=== PATIENT | male | born 1985 | race Caucasian/White ===

== ENCOUNTER 2020-09-23 15:37 | Outpatient (REF) | payer MEDICAID, SELFPAY | END 2020-09-23 15:38 | disposition home or self-care (01) | LOC: HO.LAB 15:37 | PROVIDERS: Visit Provider Internal Medicine | DX: Z20.828 Contact with and (suspected) exposure to other viral communicable diseases (principal) | CPT/HCPCS: C9803; U0003 ==

== ENCOUNTER 2021-02-06 11:00 | Outpatient (REF) | payer MEDICAID, SELFPAY | END 2021-02-06 11:01 | disposition home or self-care (01) | LOC: HO.LAB 11:00 | PROVIDERS: Visit Provider Internal Medicine | DX: Z20.822 Contact with and (suspected) exposure to COVID-19 (principal) | CPT/HCPCS: C9803; U0003; U0005 ==

== ENCOUNTER 2021-07-07 01:50 | Emergency (ER) | payer MEDICAID, SELFPAY ==
[2021-07-07 02:28] VITALS: BP 104/74; PULSE 24; RESP 16; TEMP 36.1; O2SAT 97; BMI 29.8
[2021-07-07 02:56] VITALS: BP 113/62; PULSE 125; RESP 17; TEMP 36.8; O2SAT 95
[2021-07-07 03:40] LABS: Amphetamine Screen Urine Not Detected (Not Detect); Barbiturates, Urine Not Detected (Not Detect); Benzodiazepines Screen Urine POSITIVE (Not Detect); Cannabinoid Screen Urine POSITIVE (Not Detect); Cocaine Screen Urine POSITIVE (Not Detect); Fentanyl, urine POSITIVE (Not Detect); Opiate Screen Urine Not Detected (Not Detect); Phencyclidine Screen Urine Not Detected (Not Detect)
[2021-07-07 03:41] LABS: COVID-19 Test Negative (Negative); IDNOW Serial# 9DD0AD1C
[2021-07-07] MEDS: LORazepam 1 MG TABLET 2 MG PO (04:53)
--- NOTE | 2021-07-07 05:11 | ED.PSYCH ---
HPI - Psych General Chief Complaint: Psychiatric Symptoms Stated Complaint: insomnia, hallucinations Time Seen by Provider: 07/07/21 04:35 Source: patient Mode of arrival: ambulatory Limitations: no limitations History of Present Illness HPI Narrative: Patient with history of cocaine abuse depression reports unable to sleep for last 1 week suicidal feeling sometimes ,visual hallucinations asking for Wellbutrin which she has not taken for few months. Patient asking for some medication to relax as not able to sleep for few days Related Data Home Medications Medication Instructions Recorded Confirmed buprenorphine 8 mg-naloxone 2 mg 3 strip SUBLINGUAL DAILY 07/07/21 07/07/21 sublingual film (Suboxone) clonazepam 0.5 mg tablet 1 tab PO TID 07/07/21 07/07/21 gabapentin 300 mg capsule 1 cap PO TID 07/07/21 07/07/21 quetiapine 200 mg tablet 1 tab PO BEDTIME 07/07/21 07/07/21 Allergies Allergy/AdvReac Type Severity Reaction Status Date / Time aspirin [ASA] Allergy Unknown UNKNOWN Unverified 07/03/20 18:38 Review of Systems Review of Systems: Constitutional : No Fever, No Chills ENT/Mouth : No Ear Pain, No Nasal Congestion, No sore throat Eyes: No Eye Pain, No Swelling, No Redness Cardiovascular : No Chest Pain, No SOB Respiratory : No Cough, No Sputum, No Dyspnea Gastrointestinal : No Nausea, No Vomiting, No Diarrhea, No Hematochezia, No Melena Genitourinary : No Dysuria, No Urinary Frequency, No Hematuria Musculoskeletal : No Myalgias Skin : No Skin Lesions, No rash Neuro : No Weakness, No Numbness, No Paresthesias, No Dizziness, No Headache Psych : positive Anxiety, positive Depression, positive SI Heme/Lymph: No Lymphadenopathy Endocrine : No Polyuria, No Polydipsia PMFSH Past Medical History Medical History Depression Surgical History Hx of neck surgery Social History Social History Advance Directives: No Advance Directives Information Provided: Yes Physical Exam Vital Signs: Vital Signs: Last Vital Signs Temp 98.3 F 07/07/21 02:56 Pulse 125 H 07/07/21 02:56 Resp 17 07/07/21 02:56 BP 113/62 07/07/21 02:56 Pulse Ox 95 07/07/21 02:56 Body Mass Index 29.8 Appearance: Alert. Oriented X3. No acute distress. Anxious Eyes: PERRLA, No Nystagmus no pallor or icterus ENT: Pharynx normal. Oral Mucosa moist Neck: Normal inspection. Neck supple. CVS: Normal heart rate and rhythm. Pulses normal. Respiratory: No respiratory distress. Equal air entry bilateral, no wheezing/rales/rhonchi Abdomen: Soft and nontender. Bowel sounds are present, no mass palpable, no CVA tenderness Skin: Skin warm and dry. Normal skin color. Normal skin turgor. Extremities: No lower extremity edema. No calf tenderness psych: Anxious, depressed, denies any hallucination at this time, no suicidal ideation at this time Neuro: Oriented X 3. No motor deficit. No sensory deficit.No cerebellar signs , cranial nerves II-XII intact MDM - Psych MDM Narrative Medical decision making narrative: Patient with depression with visual hallucinations for sleep with suicidal ideation off and on will get psych consult Lab Data Attestation: I reviewed the patient's lab results. Labs: Lab Results 07/07/21 07/07/21 Range/Units 03:00 03:01 Urine Opiates Screen Not Detected (Not Detect) Urine Fentanyl Screen POSITIVE H (Not Detect) Ur Barbiturates Screen Not Detected (Not Detect) Ur Phencyclidine Scrn Not Detected (Not Detect) Ur Amphetamines Screen Not Detected (Not Detect) U Benzodiazepines Scrn POSITIVE H (Not Detect) Urine Cocaine Screen POSITIVE H (Not Detect) U Marijuana (THC) Screen POSITIVE H (Not Detect) COVID-19 (FREDY) Negative (Negative) COVID-19 Clin Com See Note Discharge Plan Discharge Clinical Impression: Cocaine abuse Depression Qualifiers: Depression Type: major depressive disorder Major depression recurrence: recurrent Active/Remission status: currently active Major depression episode severity: severe Psychotic features: with psychotic features Qualified Code(s): F33.3 - Major depressive disorder, recurrent, severe with psychotic symptoms Prescriptions: No Action quetiapine 200 mg tablet 1 tab PO BEDTIME RF: 0 gabapentin 300 mg capsule 1 cap PO TID RF: 0 buprenorphine-naloxone [Suboxone] 8-2 mg film 3 strip sublingual DAILY RF: 0 clonazepam 0.5 mg tablet 1 tab PO TID RF: 0
--- NOTE | 2021-07-07 06:31 | PC.NURSE ---
Patient just went to bed resting quietly, was up whole night, snacking endlessly, patient was under poly-sub influence,patient has multiple compliant against his psychiatrist, psych consult was ordered for med review, med compliant, behavior not concerning at this time may escalate later, will continue to monitor.
--- NOTE | 2021-07-07 07:06 | PC.NURSE ---
patient appears to remain at rest at present respirations even and unlabored patient appears in no distress
[2021-07-07 08:53] VITALS: BP 108/65; PULSE 84; RESP 16; O2SAT 97
== END 2021-07-07 13:52 ==
PROVIDERS: Emergency Provider Internal Medicine
DX: F33.1 Major depressive disorder, recurrent, moderate (principal); G47.00 Insomnia, unspecified; F14.10 Cocaine abuse, uncomplicated; Z79.899 Other long term (current) drug therapy; Z20.822 Contact with and (suspected) exposure to COVID-19
CPT/HCPCS: 36415; 80307; 87635; 99284

== ENCOUNTER 2022-01-30 04:37 | Emergency (ER) | payer MEDICAID, SELFPAY ==
[2022-01-30 04:48] VITALS: BP 132/85; PULSE 106; RESP 16; O2SAT 96; BMI 27.1
--- NOTE | 2022-01-30 05:45 | PC.NURSE ---
The pt presents alert via EMS with PD in two s/p suspected overdose. Per EMS the pt was found to be cyanotic and unresponsive by family who then called 911. On EMS arrival pt was administered 12mg IM Narcan and then became responsive. On arrival to ED he is awake, alert, oriented x 3. He was able to ambulate from EMS stretcher to ED stretcher independently and with steady gait. Security at bedside on arrival and pt was changed into hospital attire. He was ronald to vopid into urinal in the room without difficulty. He is cooperative, although reluctant to answer most of the questions I ask him associated with triage assessment. Room air sat's are 96%, respirations are non-labored, no cyanosis. Pt sleeping, room air sat's being monitored. Will continue to monitor Napoleon.
--- NOTE | 2022-01-30 06:00 | PC.NURSE ---
pt given juice
[2022-01-30 06:19] VITALS: BP 117/76; PULSE 100; RESP 14; O2SAT 99
[2022-01-30 06:20] LABS: Amphetamine Screen Urine Not Detected (Not Detect); Barbiturates, Urine Not Detected (Not Detect); Benzodiazepines Screen Urine POSITIVE (Not Detect); Cannabinoid Screen Urine POSITIVE (Not Detect); Cocaine Screen Urine POSITIVE (Not Detect); Fentanyl, urine POSITIVE (Not Detect); Opiate Screen Urine POSITIVE (Not Detect); Phencyclidine Screen Urine Not Detected (Not Detect)
--- NOTE | 2022-01-30 06:22 | ED_ITS ---
HPI - Overdose General Chief Complaint: Overdose Stated Complaint: OD Time Seen by Provider: 01/30/22 05:35 Source: patient and automotive parts interpreter Mode of arrival: EMS History of Present Illness HPI Narrative: 36-year-old male brought in by EMS after he overdosed. EMS states that family called 911 due to unresponsive and cyanotic patient. Patient states that he was simply sleeping and denies any thoughts trying to kill himself. Patient rec eived a total of 12 mg IM Narcan prior to arrival. Related Data Home Medications Medication Instructions Recorded Confirmed buprenorphine 8 mg-naloxone 2 mg 3 strip SUBLINGUAL DAILY 07/07/21 07/07/21 sublingual film (Suboxone) clonazepam 0.5 mg tablet 1 tab PO TID 07/07/21 07/07/21 gabapentin 300 mg capsule 1 cap PO TID 07/07/21 07/07/21 quetiapine 200 mg tablet 1 tab PO BEDTIME 07/07/21 07/07/21 Allergies Allergy/AdvReac Type Severity Reaction Status Date / Time aspirin [ASA] Allergy Unknown UNKNOWN Unverified 07/03/20 18:38 Review of Systems Review of Systems: Pertinent positives and negatives as stated in HPI 10 point review of systems is otherwise negative. [facility] Past Medical History Source: nursing notes reviewed Medical History Depression Surgical History Hx of neck surgery Social History Social History Alcohol intake: unknown Patient Tobacco Use Status: Tobacco use Unknown Use of substances other than those prescribed or required for medical reasons: Yes Substance Use Type: Opiates Advance Directives: No Physical Exam Vital Signs: Vital Signs: Last Vital Signs Pulse 100 01/30/22 06:19 Resp 14 01/30/22 06:19 BP 117/76 01/30/22 06:19 Pulse Ox 99 01/30/22 06:19 BMI result Body Mass Index 27.1 Course Course Course Narrative: 36-year-old male with history and clinical presentation consistent with accidental overdose. Denies any suicidal or homicidal ideation. He is otherwise medically cleared for further evaluation by the care team. Reevaluation(s) Reevaluation #1: Patient placed in physician observation because the patient needed more time for evaluation by the care team. At the time observation was started the patient's vital signs were stable, patient is alert and oriented but slightly agitated, neuro: Nonfocal, CV RRR, lungs clear Time: 06:26 MDM - Overdose Lab Data Labs: Lab Results 01/30/22 Range/Units 06:00 Urine Opiates Screen POSITIVE H (Not Detect) Urine Fentanyl Screen POSITIVE H (Not Detect) Ur Barbiturates Screen Not Detected (Not Detect) Ur Phencyclidine Scrn Not Detected (Not Detect) Ur Amphetamines Screen Not Detected (Not Detect) U Benzodiazepines Scrn POSITIVE H (Not Detect) Urine Cocaine Screen POSITIVE H (Not Detect) U Marijuana (THC) Screen POSITIVE H (Not Detect) Discharge Plan Discharge Clinical Impression: Drug overdose, Substance use disorder Patient Disposition: Still a Patient Instructions: Adult Overdose (ED) Additional Instructions: follow-up with your primary care provider. Prescriptions: No Action quetiapine 200 mg tablet 1 tab PO BEDTIME 0RF gabapentin 300 mg capsule 1 cap PO TID 0RF buprenorphine-naloxone [Suboxone] 8-2 mg film 3 strip sublingual DAILY 0RF clonazepam 0.5 mg tablet 1 tab PO TID 0RF
--- NOTE | 2022-01-30 06:53 | PC.NURSE ---
pt given more juice
--- NOTE | 2022-01-30 08:48 | HO.SUDE ---
SUDE Patient is a 36 year old Bolivian speaking male who presented to [facility] ED after an accidental overdose. This curriculum writer met with patient to discuss substance use and treatment options. Patient reports he has been on Suboxone for over a year and has been doing really well. Patient reports his prescriber at the [facility] was unable to give him a refill and he relapsed. Patient would not elaborate on why he did not get a refill. Patient reports he was taking 24mg and that it was working well. Patient is interested in getting back on Suboxone. Patient reports he has been to detox before but does not want to go today, stating he only used two bags and does not think it is necessary. Patient has a history of psychiatric admissions and has been diagnosed with depression. Discussed risk of overdose during a relapse and the prevalence of fentanyl in the drug supply and patient acknowledged. Patient reports he has never overdosed before. Discussed restarting Suboxone and provided education to patient. Information provided on the [facility] and informed patient that they will be closed on Tuesday. Suboxone bridge prescription sent to [facility]. Patient became agitated and demanded to leave. Discussed case with ED physician and RN.
== END 2022-01-30 08:44 | disposition home or self-care (01) ==
PROVIDERS: Emergency Provider Student in an Organized Health Care Education/Training Program
DX: T50.901A Poisoning by unspecified drugs, medicaments and biological substances, accidental (unintentional), initial encounter (principal); F11.20 Opioid dependence, uncomplicated; Y92.9 Unspecified place or not applicable
CPT/HCPCS: 80307; 99284; 99285

== ENCOUNTER 2022-04-23 00:43 | Emergency (ER) | payer MEDICAID, SELFPAY ==
[2022-04-23] VITALS (11 sets, daily range): BP systolic 91–129; BP diastolic 48–68; PULSE 68–114; RESP 10–18; TEMP 36.3; O2SAT 91–99; BMI 29.1
--- NOTE | 2022-04-23 01:00 | PC.NURSE ---
pt nodding off on EMS stretcher upon arrival. pt jumped out of bed immediatley after being dropped off by EMS. pt redirected back to bed where he is sleeping. pt has no complaints at this time, pt in no distress
--- NOTE | 2022-04-23 01:03 | ED_ITS ---
HPI - General Adult General Chief complaint: ETOH/Substance Use Stated complaint: etoh/crisis Time Seen by Provider: 04/23/22 01:02 Source: EMS Mode of arrival: EMS History of Present Illness HPI narrative: 36-year-old male who is brought in by EMS and reports that patient has not been taking his medications for bipolar/schizophrenia and apparently has been drinking alcohol. EMS states that they were initially called for a verbal alter cation where that people on scene said that the patient was intoxicated as well as aggressive. Although patient denies heroin or cocaine use he is noted to be nodding off while on the EMS stretcher and requires chest rub of for stimulation. Related Data Home Medications Medication Instructions Recorded Confirmed buprenorphine 8 mg-naloxone 2 mg 3 strip sublingual DAILY 07/07/21 07/07/21 sublingual film (Suboxone) clonazepam 0.5 mg tablet 1 tab PO TID 07/07/21 07/07/21 gabapentin 300 mg capsule 1 cap PO TID 07/07/21 07/07/21 quetiapine 200 mg tablet 1 tab PO BEDTIME 07/07/21 07/07/21 Previous Rx's Medication Instructions Recorded buprenorphine 8 mg-naloxone 2 mg 3 film sublingual DAILY #6 ea 01/30/22 sublingual film (Suboxone) Allergies Allergy/AdvReac Type Severity Reaction Status Date / Time aspirin [ASA] Allergy Unknown UNKNOWN Unverified 07/03/20 18:38 Review of Systems Review of Systems: Yes Unobtainable due to mental condition [facility] Past Medical History Source: nursing notes reviewed Medical History Depression Surgical History Hx of neck surgery Social History Social History Alcohol intake: unknown Patient Tobacco Use Status: Tobacco use Unknown Substance Use Type: Opiates Advance Directives: No Advance Directives Information Provided: Yes Physical Exam ED Vital Signs: Vital Signs - 24 hr 04/23/22 00:49 04/23/22 00:59 04/23/22 01:15 Temperature Pulse Rate 99 96 90 Respiratory Rate 12 18 18 Blood Pressure 98/60 97/57 L Pulse Oximetry 93 91 L 95 Oxygen Delivery Method Room Air Room Air Nasal Cannula Oxygen Flow Rate 2 04/23/22 01:52 04/23/22 02:16 04/23/22 02:43 Temperature Pulse Rate 86 84 83 Respiratory Rate 18 18 18 Blood Pressure 91/53 L 96/48 L 96/50 L Pulse Oximetry 98 95 99 Oxygen Delivery Method Room Air Nasal Cannula Nasal Cannula Oxygen Flow Rate 2 2 04/23/22 03:25 04/23/22 04:05 04/23/22 04:53 Temperature Pulse Rate 75 79 77 Respiratory Rate 17 10 L 18 Blood Pressure 101/68 129/60 Pulse Oximetry 95 97 97 Oxygen Delivery Method Nasal Cannula Room Air Nasal Cannula Oxygen Flow Rate 2 2 04/23/22 06:25 Temperature 97.4 F Pulse Rate 81 Respiratory Rate 16 Blood Pressure Pulse Oximetry 96 Oxygen Delivery Method Nasal Cannula Oxygen Flow Rate 2 BMI result Body Mass Index 29.1 VITAL SIGNS: Reviewed. GENERAL: Well developed, in no acute distress, smells of alcohol HEAD: Normocephalic/atraumatic EYES: PERRLA, EOMI, pinpoint pupils EARS: Ext canals without abnormality OROPHARYNX: no oral lesions noted, posterior pharynx clear LUNGS: Normal breath sounds. No adventitious sounds or accessory muscle use. SpO2<93> CARDIOVASCULAR: Regular rate and rhythm without noted murmurs, no JVD or lower extremity edema. ABDOMEN: Soft, non-tender, non-distended with bowel sounds. MUSCULOSKELETAL: No tenderness, deformities, or effusions noted on gross inspection. EXTREMITIES: No cyanosis, clubbing or edema. SKIN: Inspection of the skin reveals no rashes NEUROLOGIC: Arousable with painful stimulation, spontaneous breathing noted. Strength and sensation to light touch were grossly intact x 4. Course Course Course Narrative: 36-year-old male with history and clinical presentation consistent with likely heroin use and suspect alcohol as well. Due to patient level of consciousness he received 4 mg of Narcan intranasally, was placed on ongoing capnography. Patient received a total of 16 mg of Narcan with good results in improvement of respirations and oxygenation. Capnography continues to be stable. And patient is more arousable. All investigations were reviewed. Will assess for willingness to undergo GABRIEL evaluation and will be discharged with home Narcan. Medical Decision Making Lab Data Labs: Lab Results 04/23/22 04/23/22 Range/Units 02:00 04:06 Urine Opiates Screen Not Detected (Not Detect) Urine Fentanyl Screen POSITIVE H (Not Detect) Ur Barbiturates Screen Not Detected (Not Detect) Ur Phencyclidine Scrn Not Detected (Not Detect) Ur Amphetamines Screen Not Detected (Not Detect) U Benzodiazepines Scrn POSITIVE H (Not Detect) Urine Cocaine Screen POSITIVE H (Not Detect) U Marijuana (THC) Screen POSITIVE H (Not Detect) Ethyl Alcohol 40 mg/dL Discharge Plan Discharge Clinical Impression: Substance use disorder Patient Disposition: Still a Patient Instructions: Polysubstance Abuse (ED) Additional Instructions: 1. You have been provided with home Narcan and should utilize this medication if you over use again. Return to the ER for worsening symptoms. Prescriptions: No Action quetiapine 200 mg tablet 1 tab PO BEDTIME gabapentin 300 mg capsule 1 cap PO TID buprenorphine-naloxone [Suboxone] 8-2 mg film 3 strip sublingual DAILY clonazepam 0.5 mg tablet 1 tab PO TID buprenorphine-naloxone [Suboxone] 8-2 mg film 3 film sublingual DAILY Qty: 6 0RF Rx Instructions: place 1 strip/tab under (each) side of tongue Referrals: [facility] [Primary Care Provider] - Print Language: Armenian
[2022-04-23] MEDS: Naloxone HCl Nasal 4 MG SPRAY NOSTRILALT ×4 (01:15→03:14)
--- NOTE | 2022-04-23 01:51 | PC.NURSE ---
pt is sleeping at this time, in no distress
[2022-04-23 02:22] LABS: Ethanol 40 mg/dL
--- NOTE | 2022-04-23 02:45 | PC.NURSE ---
pt continues to be somnolent, arousable with sternal rub or physical touch. pt resting in no distress on 2lpm via NC
[2022-04-23 04:38] LABS: Amphetamine Screen Urine Not Detected (Not Detect); Barbiturates, Urine Not Detected (Not Detect); Benzodiazepines Screen Urine POSITIVE (Not Detect); Cannabinoid Screen Urine POSITIVE (Not Detect); Cocaine Screen Urine POSITIVE (Not Detect); Fentanyl, urine POSITIVE (Not Detect); Opiate Screen Urine Not Detected (Not Detect); Phencyclidine Screen Urine Not Detected (Not Detect)
--- NOTE | 2022-04-23 04:52 | PC.NURSE ---
pt got OOB independently with unsteady gait stating he was cold. pt redirected back to bed by 2 RNs and pt was given another blanket
--- NOTE | 2022-04-23 11:11 | MHC.CARE ---
CARE Team met with Pt who presented to the ED after and overdose. Pt is requesting recovery resources and expressed interest in going to detox. Pt denies current SI/HI. Pt is stating he wants help with his substance use. CARE Team discussed plan with Dr. Ardon who is in agreement. Plan for recovery team to provide recovery support and referrals.
--- NOTE | 2022-04-23 11:17 | HO.SUDE ---
Addendum entered by Jose Smith, [facility] 04/23/22 16:17: Patient accepted to [facility] and transported Via [employer]. Original Note: SUDE Patient is a 36 year old Upper Sor[place] speaking male who presented to [facility] ED via EMS due to an accidental overdose. Patient was given naloxone while in the emergency department. This technical writer and editor met with patient to discuss substance use and treatment options. Patient denies opiate use, stating he is on Suboxone. Patient reports he had an appointment at the [facility] yesterday and that he last took his Suboxone yesterday. Patient reports he has been using cocaine daily and that the fentanyl in his system came from the cocaine he has been using. In addition, patient reports drinking large amounts of alcohol daily. Patient reports consuming 3 packages of [place] in addition to several bottles of Cassi daily. Patient report this has been going on for years and that he is tired of living this way and that he wants to get help. Patient reports that he has a home to go to but knows he will continue to use if he returns there. Patient is requesting detox at this time. Patient has been to detox in the past and states it wasn't helpful, however he says he wants help now and thinks it will be a better experience for this reason. Patient reports he has overdosed multiple times in the past and was here in January of this year for an overdose. Patient has been diagnosed with depression and reports he has a therapist and psychiatrist through [facility]. Patient denies SI/HI/AH/VH. This technical writer and editor will assist patient in referring to ATS facilities.
--- NOTE | 2022-04-23 15:26 | PC.NURSE ---
pt on phone w detox bed intake.
== END 2022-04-23 15:55 | disposition other institution (70) ==
PROVIDERS: Student in an Organized Health Care Education/Training Program; Emergency Provider Emergency Medicine
DX: F19.99 Other psychoactive substance use, unspecified with unspecified psychoactive substance-induced disorder (principal); F11.20 Opioid dependence, uncomplicated; F20.9 Schizophrenia, unspecified; F31.9 Bipolar disorder, unspecified; Z91.14 Patient's other noncompliance with medication regimen
CPT/HCPCS: 36415; 80307; 82077; 99285